=== PATIENT | female | born 1965 | race Two or more races ===

== ENCOUNTER 2017-08-20 14:23 | Emergency (ER) | payer MEDICAID ==
[~2017-08-20] VITALS: Ht 167.6 cm; Wt 72.6 kg
[2017-08-20 14:43] VITALS: BP 130/80
== END 2017-08-20 17:27 | disposition left against medical advice (07) ==
LOC: EDBD 14:23 → ER 14:23
DX: R07.89 Other chest pain (principal); Z53.21 Procedure and treatment not carried out due to patient leaving prior to being seen by health care provider; V49.49XA Driver injured in collision with other motor vehicles in traffic accident, initial encounter; Y93.89 Activity, other specified; Y99.8 Other external cause status; Y92.410 Unspecified street and highway as the place of occurrence of the external cause
CPT/HCPCS: 93005